=== PATIENT | female | born 1995 | race Two or more races ===

== ENCOUNTER → 2024-05-17 | Outpatient (CLI) | payer MEDICAID, SELFPAY ==
--- NOTE | 2024-05-17 15:44 | XR_ITS ---
Examination: Hand, right 3 views Date and time: May 15, 2024 1548 hours Technique: Hand AP, oblique, lateral 3 views Indications: Right hand pain this week FINDINGS: Mild osteopenia No fracture No dislocation No cortical bone destruction IMPRESSION: No fracture or significant arthritic change
== END | disposition home or self-care (01) ==
PROVIDERS: PCP Nurse Practitioner; Referring Provider Nurse Practitioner; Visit Provider Nurse Practitioner
DX: M79.641 Pain in right hand (principal)
CPT/HCPCS: 73130

== ENCOUNTER → 2024-11-22 | Outpatient (CLI) | payer MEDICAID, SELFPAY ==
--- NOTE | 2024-11-22 09:24 | XR_ITS ---
Examination: Knee, left , 3 views Technique: Knee AP, lateral, oblique 3 views Date and time of exam: November 22, 2024, 0929 hours INDICATIONS: Left knee pain after falling one week ago FINDINGS: No fracture or dislocation Minimal tricompartment osteoarthritis IMPRESSION: No fracture or dislocation
== END | disposition home or self-care (01) ==
PROVIDERS: PCP Nurse Practitioner; Referring Provider Nurse Practitioner; Visit Provider Nurse Practitioner
DX: M25.562 Pain in left knee (principal)
CPT/HCPCS: 73562